=== PATIENT | male | born 1930 | race Caucasian/White ===

== ENCOUNTER → 2017-09-06 | Outpatient (CLI) | payer MEDICARE, BC | END | disposition home or self-care (01) | LOC: ECHO 08:09 | DX: I35.0 Nonrheumatic aortic (valve) stenosis (principal); I51.7 Cardiomegaly; I10 Essential (primary) hypertension; J44.9 Chronic obstructive pulmonary disease, unspecified; E66.9 Obesity, unspecified; K21.9 Gastro-esophageal reflux disease without esophagitis | CPT/HCPCS: 93306 ==

== ENCOUNTER → 2020-11-19 | Outpatient (CLI) | payer MEDICARE, BC ==
[2016-01-13 11:00] VITALS: BP 134/65
[~2020-11-19] MED LIST: AMOX1TAB61 PO; ASPI-630 PO; FAMO20TA5 PO; GUAI400T78 PO; LACT1CAP8 PO; LEVO50TA5 PO; POLY17PO29 PO; TIOT18CA IH
--- NOTE | 2020-11-19 12:08 | KCIC ---
EXAM: Brain MRI with and without contrast. HISTORY: Headaches. TECHNIQUE: Multiplanar, multisequence magnetic resonance imaging of the brain was performed prior to and following the administration of intravenous contrast. COMPARISON: None. FINDINGS: There is no restricted diffusion to suggest acute or subacute infarction. There is tiny foc us of susceptibility effect within the right putamen due to calcification or chronic microhemorrhage. There is no mass effect or midline shift. There is no hydrocephalus. There is encephalomalacia within the medial frontal lobes, the distribution of which favors a posttra umatic etiology. There are small focal areas of encephalomalacia within the right cerebellum due to c hronic infarction. There is a chronic infarct within the left caudate nucleus. There are extensive areas of signal change within the cerebral white matter, likely due to chronic sm all vessel disease in a patient of this age. There is evidence of lens surgery. There are maxillary s inus mucous retention cysts. There is minimal right mastoid fluid. There are normal flow voids within the cerebral vessels. There is no suspicious calvarial lesion. IMPRESSION: 1. No acute intracranial finding. 2. 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 3. 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 4. Extensive white matter changes, likely due to chronic small vessel disease in a patient of this ag e. 5. Cerebral atrophy. Electronically signed by: Ning Cerda MD (11/19/2020 12:06 PM) [facility]
== END ==
LOC: KCIC MRI 10:52
PROVIDERS: ATTEND Family Medicine
DX: G93.89 Other specified disorders of brain (principal); G31.9 Degenerative disease of nervous system, unspecified; R90.82 White matter disease, unspecified; J34.1 Cyst and mucocele of nose and nasal sinus; G44.52 New daily persistent headache (NDPH); Z98.890 Other specified postprocedural states
CPT/HCPCS: 70551